=== PATIENT | male | born 2000 | race Caucasian/White ===

== ENCOUNTER 2020-11-19 10:44 | Emergency (ER) | payer OTHER ==
[~2020-11-19 10:44] MED LIST: BACTRIM DS TAB1 EACH PO
[2020-11-19 11:44] LABS: BASOPHIL 0.6 % (0-2); EOSINOPHIL 1.6 % (0-5); HCT 48.1 % (42.0-52.0); HGB 16.6 g/dl (13.2-18.0); MCH 28.9 pg (25.0-31.0); MCHC 34.5 g/dL (32.0-36.0); MCV 83.8 fL (78.0-100.0); MONOCYTE 7.6 % (0-12); MPV 9.6 fL (6.0-9.5); NEUTROPHIL 71.1 % (41-80); NRBC 0; PLT 246 K/uL (150-400); RBC 5.74 M/uL (4.70-6.00); RDW 11.9 % (11.5-14.0); WBC 6.7 K/uL (4.0-10.5)
[2020-11-19 12:01] LABS: BUN 10 mg/dL (7-18); BUN/CREAT RATIO (CALC) 10.4 RATIO; CHLORIDE 103 mmol/L (98-107); CO2 (BICARBONATE) 26 mmol/L (21-32); CREATININE 0.96 mg/dL (0.67-1.17); GLUCOSE 84 mg/dL (74-106); POTASSIUM 3.8 mmol/L (3.5-5.1)
[2020-11-19 12:29] LABS: AMPHETAMINES POSITIVE (NEGATIVE); BARBITURATES NEGATIVE (NEGATIVE); ECSTASY (MDMA) NEGATIVE (NEGATIVE); MARIJUANA (THC) POSITIVE (NEGATIVE); METHADONE NEGATIVE (NEGATIVE); OPIATES NEGATIVE (NEGATIVE)
[2020-11-19 12:30] LABS: OXYCODONE NEGATIVE (NEGATIVE)
== END 2020-11-19 12:51 | disposition home or self-care (01) ==
LOC: FER 10:44
PROVIDERS: Emergency Medicine
DX: R55 Syncope and collapse (principal); F15.10 Other stimulant abuse, uncomplicated; F12.10 Cannabis abuse, uncomplicated
CPT/HCPCS: 36415; 80048; 80305; 85025; 93005; G0480